=== PATIENT | female | born 1980 | race African-American/Black ===

== ENCOUNTER 2021-01-12 02:49 | Emergency (ER) | payer OTHER, SELFPAY ==
--- NOTE | ~2021-01-12 | CT_ITS ---
EXAMINATION: CT BRAIN W/O DATE: 01/12/2021 03:15 INDICATION: Syncope TECHNIQUE: Computed tomography (CT) of the head was performed without intravenous contrast. The dose- length product was 605.33 mGy-cm. The mA was adjusted according to patient size. Iterative reconstruc tion technique was employed. COMPARISON: No prior studies for comparison. FINDINGS: Normal brain parenchymal volume for age. Normal barnett-white differentiation. No acute intrac ranial hemorrhage, infarction, mass or mass effect. No ventriculomegaly or midline shift. Midline sagittal images demonstrate a normal corpus callosum, c raniovertebral junction and sella turcica. Basilar cisterns are patent. Paranasal sinuses and mastoids are pneumatized. No depressed skull fractures. IMPRESSION: 1. No acute intracranial abnormality. Reviewed, dictated and finalized at location A.
[2021-01-12 02:57] VITALS: BP 126/80; PULSE 62; RESP 12; O2SAT 100
--- NOTE | 2021-01-12 02:58 | PC.NURSE ---
EDMD at bedside. Pt presents to ED from work with complaints of sudden onset dizziness and lightheadedness. Pt states this happens alot but I have never been to the doctor for it . Pt states she is unsure how often the occurrences are but it has been a few months since the episode . Pt noted to be alert and oriented x4. Breathing is even and unlabored and states all symptoms have resolved.
--- NOTE | 2021-01-12 03:01 | ECG_ITS ---
Measurements Intervals [place] Rate: 57 P: -2 ME: 135 QRS: 60 QRSD: 93 T: 43 QT: 412 QTc: 402 Interpretive Statements SINUS BRADYCARDIA BORDERLINE ECG Electronically Signed On 01-12-2021 7:34:46 CDT by Kwame Vines D.O.
--- NOTE | 2021-01-12 03:09 | PC.NURSE ---
Pt to ct via cart.
--- NOTE | 2021-01-12 03:30 | ED.NEUROSD ---
HPI - Neuro Symptoms/Deficit General Chief Complaint: Suspected CVA Stated Complaint: dizziness/slurred speech Time Seen by Provider: 01/12/21 02:52 History of Present Illness HPI Narrative: Patient is a 40-year-old female who presents to the emergency department with chief complaint of near syncopal episode. The patient was at work talking on the phone and suddenly started feeling very weak she felt lightheaded and felt as though she was going to pass out patient kind of slumped over in her chair and then subsequently had some slurred speech afterwards the patient states that the symptoms have gradually resolved and she feels back to her baseline status other than feeling a little tired. Patient states that she has had several episodes like this before and has not seen a provider about it. The patient reports she has just past medical history for sickle cell trait. Related Data Allergies Allergy/AdvReac Type Severity Reaction Status Date / Time No Known Allergies Allergy Verified 01/12/21 03:53 Review of Systems Review of Systems: Narrative: A 10 system review of systems was completed on the patient and is negative except for what is stated in the HPI. Nursing and ancillary documentation was reviewed. PMFSH Comments Past medical history significant for sickle cell trait Social history the patient denies illicit drug use Exam Narrative: Exam Narrative: GENERAL: Well-appearing, well-nourished, and in no acute distress. HEAD: Normocephalic, atraumatic. EYES: PERRLA and EOMI. ENT: Nares clear, no rhinorrhea or epistaxis. Mucous membranes moist. NECK: Supple. CHEST: Clear to auscultation. No respiratory distress. HEART: Regular rate and rhythm. No murmur heard. Normal peripheral pulses. ABDOMEN: Soft, nontender, nondistended, normal active bowel sounds. EXTREMITIES: Normal range of motion. No edema. SKIN: Warm, dry, no rash. NEURO: No focal deficits. Alert and oriented x3. PSYCH: Normal mood and affect. Course Course Emergency Course: EKG is sinus rhythm rate of [address] elevation or ST depression Vital Signs Vital signs: Vital Signs Pulse Rate 62 01/12/21 02:57 Respiratory Rate 12 01/12/21 02:57 Blood Pressure 126/80 01/12/21 02:57 Pulse Oximetry 100 01/12/21 02:57 Pulse Rate 61 01/12/21 04:08 Respiratory Rate 17 01/12/21 04:08 Blood Pressure 97/56 L 01/12/21 04:08 Pulse Oximetry 100 01/12/21 04:08 MDM - Neuro Symptoms/Deficit Lab Data Result diagrams: 01/12/21 03:52 01/12/21 03:52 Labs: Lab Results 01/12/21 01/12/21 01/12/21 Range/Units 03:52 03:52 03:52 WBC 8.6 (4.5-10.0) K/mm3 RBC 3.83 L (4.2-5.4) M/mm3 Hgb 12.5 (12.0-15.0) g/dL Hct 37.2 (37.0-47.0) % MCV 97.1 (80-100) fl MCH 32.6 (26-34) pg MCHC 33.6 (32-36) g/dl RDW 12.9 (11.5-14.5) % Plt Count 256 (150-375) k/mm3 MPV 9.1 (7.4-10.4) fl Immature Gran % (Auto) 0.5 (0-0.5) % Neut % (Auto) 45.1 L (45.5-73.1) % Lymph % (Auto) 46.7 H (18.3-44.2) % [place] % (Auto) 4.6 (2.6-8.5) % Eos % (Auto) 2.6 (0-4.4) % Baso % (Auto) 0.5 (0.2-1.2) % Lymph # (Auto) 4.00 H (0.9-3.2) K/mm3 [place] # (Auto) 0.4 (0.1-0.6) K/mm3 Eos # (Auto) 0.2 (0-0.3) K/mm3 Baso # (Auto) 0.0 (0.0-0.1) K/mm3 Abs Immat Gran (auto) 0.04 H (0.00-0.031) K/mm3 Absolute Neuts (auto) 3.9 (1.3-6.7) K/mm3 Absolute Nucleated RBC 0.0 (0.0-0.012) K/mm3 Nucleated RBC % 0.0 (0.0-0.2) % Sodium 142 (137-145) mmol/L Potassium 4.1 (3.4-5.0) mmol/L Chloride 111 H (98-107) mmol/L Carbon Dioxide 27 (22-30) mmol/L Anion Gap 4 L (8-16) mmol/L BUN 14 (7-17) mg/dL Creatinine 0.90 (0.7-1.0) mg/dL Estim Creat Clear Calc Not Reportable Estimated GFR > 60 (59 - ) Glucose 89 (65-105) mg/dL Lactic Acid 0.9 (0.7-2.1) mmol/L Calcium 9.3 (8.4-10.2) mg/dL Magnesium 1.8 (1.6-2.3
[2021-01-12] MEDS: SODIUM CHLORIDE 0.9% IV 1,000 ML 999 ML IV CONT (03:53)
[2021-01-12 04:03] LABS: Basophils Percent Auto 0.5 % (0.2-1.2); Eosinophils Absolute Auto 0.2 K/mm3 (0-0.3); Eosinophils Percent Auto 2.6 % (0-4.4); Hematocrit 37.2 % (37.0-47.0); Hemoglobin 12.5 g/dL (12.0-15.0); Immature Granulocyte Absolute 0.04 K/mm3 (0.00-0.031); Immature Granulocyte Percent A 0.5 % (0-0.5); Lymphocytes Percent Auto 46.7 % (18.3-44.2); Mean Corpuscular HGB Conc 33.6 g/dl (32-36); Mean Corpuscular Hemoglobin 32.6 pg (26-34); Mean Corpuscular Volume 97.1 fl (80-100); Mean Platelet Volume 9.1 fl (7.4-10.4); Monocytes Absolute Auto 0.4 K/mm3 (0.1-0.6); Monocytes Percent Auto 4.6 % (2.6-8.5); Neutrophils Absolute Auto 3.9 K/mm3 (1.3-6.7); Neutrophils Percent Auto 45.1 % (45.5-73.1); Platelet Count Result 256 k/mm3 (150-375); Red Blood Count 3.83 M/mm3 (4.2-5.4); Red Cell Distribution Width 12.9 % (11.5-14.5); White Blood Count 8.6 K/mm3 (4.5-10.0)
[2021-01-12 04:08] VITALS: BP 97/56; PULSE 61; RESP 17; O2SAT 100
--- NOTE | 2021-01-12 04:19 | PC.NURSE ---
Pt assisted to restroom via wheelchair. steady gait noted. Pt now back in bed resting on cart in its lowest position with call button and personal items within reach. Pt advised to press call button for assistance.
--- NOTE | 2021-01-12 04:21 | PC.NURSE ---
Urine specimen walked to lab.
[2021-01-12 04:24] LABS: Alanine Aminotransferase 14 U/L (4-35); Albumin Level 3.9 g/dL (3.5-5.1); Alkaline Phosphatase 60 U/L (38-126); Anion Gap 4 mmol/L (8-16); Aspartate Amino Transferase 25 U/L (14-36); Bilirubin,Total 0.1 mg/dL (0.2-1.3); Blood Urea Nitrogen 14 mg/dL (7-17); Calcium 9.3 mg/dL (8.4-10.2); Carbon Dioxide 27 mmol/L (22-30); Chloride 111 mmol/L (98-107); Estimated Glomerular Filt Rate > 60; Glucose 89 mg/dL (65-105); Lactic Acid Reflex 0.9 mmol/L (0.7-2.1); Magnesium 1.8 mg/dL (1.6-2.3); Potassium 4.1 mmol/L (3.4-5.0); Sodium 142 mmol/L (137-145)
[2021-01-12 04:36] LABS: Troponin I < 0.012 ng/mL (0.000-0.034)
[2021-01-12 04:36] LABS: Add Urine Microscopic? YES; Appearance Urine Clear (Clear); Bacteria Urine Trace /hpf; Bilirubin Urine Negative (Negative); Blood Urine 2+ (Negative); Color Urine Yellow (Yellow); Glucose Urine UA Negative (Negative); Ketones Urine Negative (Negative); Leukocyte Esterase Ur Negative LEU/UL (Negative); Mucus Urine Rare /lpf; Nitrate Urine Negative (Negative); Protein Urine Negative (Negative); RBC Urine 0-2 /hpf (0-2); Specific Grav Ur 1.013 (1.001-1.035); Squamous Epithelial Cell Urine Few /hpf (Few); Urobilinogen Urine Negative mg/dL (<2.0); WBC Urine 0-3 /hpf
[2021-01-12 05:02] VITALS: BP 112/60; PULSE 67; RESP 18; TEMP 37.1; O2SAT 100
[2021-01-12] MEDS: ACETAMINOPHEN 500 MG TABLET 1000 MG PO (05:03)
--- NOTE | 2021-01-12 05:07 | PC.NURSE ---
Pt resting on cart with call button and personal items within reach. Pt states that dizziness has subsided and that she feels better. Pt now complains of headache. EDMD notified, orders placed and medications administered. Pt now resting on cart in its lowest postiion with call button and personal items within reach. Pt advised to press call button for assistance. Pt is currently looking for a ride back to work.
== END 2021-01-12 05:31 | disposition home or self-care (01) ==
PROVIDERS: Emergency Provider Emergency Medicine
DX: R55 Syncope and collapse (principal)
CPT/HCPCS: 36415; 70450; 80053; 81001; 81025; 83605; 83735; 84484; 85025; 93005; 96360; 99284; A9270; J7030